=== PATIENT | male | born 1990 | race Caucasian/White ===

== ENCOUNTER 2021-07-07 09:47 | Emergency (ER) | payer OTHER, SELFPAY ==
[2021-07-07 09:50] VITALS: BP 136/79; PULSE 82; RESP 16; TEMP 36.2; O2SAT 99
[2021-07-07 10:40] LABS: Bilirubin Negative (Negative); Blood Negative (Negative); Clarity Clear (Clear); Glucose Negative (Negative); Ketones Negative (Negative); Leukocyte Esterase Negative (Negative); Nitrite Negative (Negative); Specific Gravity 1.015 (1.005-1.025); Urobilinogen 0.2 EU/dL (Up TO 0.2)
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
[2021-07-07 10:51] LABS: *AMPHETAMINES SCREEN URINE Negative (Negative); *BARBITURATES SCREEN URINE Negative (Negative); *BENZODIAZEPINES SCREEN URINE Negative (Negative); Cannabinoids THC Positive (Negative); Cocaine Screen,Urine Negative (Negative); METHADONE URINE SCREEN Negative (Negative); OPIATES URINE SCREEN Negative (Negative)
[2021-07-07 10:52] LABS: Tricyclic Antidepressants Negative (Negative)
[2021-07-07 11:09] LABS: Abs Immature Grans 0.01 10^3/uL (0.0-0.06); Absolute Basophil Count 0.04 10^3/uL (0.0-0.2); Absolute Eosinophil Count 0.12 10^3/uL (0.0-0.7); Absolute Lymphocyte Count 2.56 10^3/uL (1.2-3.4); Absolute Monocyte Count 0.48 10^3/uL (0.1-0.8); Absolute Neutrophil Count 3.82 10^3/uL (1.2-6.7); Basophils % 0.6; Eosinophils % 1.7; HCT 45.4 % (40.0-50.0); HGB 15.5 g/dL (13.5-17.5); Immature Grans % 0.1; Lymphocytes % 36.4; MCH 31.2 pg (27.0-33.0); MCHC 34.1 % (32.0-36.0); MCV 91.3 fL (80-95); MPV 10.5 fL (8.0-11.0); Monocytes % 6.8; Neutrophils % 54.4; Nucleated RBC 0 %; Platelet Count 199 10^3/uL (130-400); RBC 4.97 10^6/uL (4.36-5.78); RDW 12.6 % (11.8-14.1); RDW-SD 42.3 fL; WBC 7.03 10^3/uL (4.4-10.8)
[2021-07-07 11:32] LABS: ALT 98 U/L (16-63); AST 27 U/L (15-37); Albumin 4.2 g/dL (3.4-5.0); Alkaline Phosphatase 48 U/L (46-116); Anion Gap 8.1 mmol/L (3-11); BUN 15 mg/dL (7-18); Bilirubin, Total 0.4 mg/dL (0.2-1.0); CO2 25.9 mmol/L (21.0-32.0); CREATININE 1.1 mg/dL (0.70-1.30); Calcium 8.7 mg/dL (8.5-10.1); Chloride 103 mmol/L (98-107); Glucose 105 mg/dL (74-106); Potassium 4.4 mmol/L (3.5-5.1); Sodium 137 mmol/L (136-145); TSH (W/Ref FT4) 0.96 uIU/mL (0.36-3.74); Total Protein 7.9 g/dL (6.4-8.2)
[2021-07-07 11:36] LABS: Acetaminophen < 2 ug/mL (10-30); Salicylate 2.9 mg/dL (<2.8)
[2021-07-07 11:40] LABS: ETHANOL BLOOD < 3.0 mg/dL (<10)
== END 2021-07-07 13:49 | disposition home or self-care (01) ==
PROVIDERS: Emergency Provider Registered Nurse Emergency
DX: F20.0 Paranoid schizophrenia (principal); R45.89 Other symptoms and signs involving emotional state
CPT/HCPCS: 80053; 80307; 99283; 80320; 80329; 81003; 84443; 85025